=== PATIENT | female | born 1935 | race Caucasian/White ===

== ENCOUNTER 2017-02-21 18:42 | Emergency (ER) | payer MEDICARE, BC ==
[2017-02-21 19:12] VITALS: BP 159/72
--- NOTE | 2017-02-21 19:53 | UC ---
Complaint Female HPI - HPI Summary HPI Summary: 82 yo F with frequency and dysuria x 2 days. No fever, no flank pain. No abd pain, no N,V. - History Of Current Complaint Chief Complaint: UCGU Stated Complaint: URINARY Time Seen by Provider: 02/21/17 19:30 Hx Obtained From: Patient Hx Last Menstrual Period: n/a Onset/Duration: Gradual Onset, Lasting Days, Still Present Timing: Constant Severity Initially: Moderate Severity Currently: Moderate Pain Intensity: 2 Pain Scale Used: 0-10 Numeric Character: Not Applicable Aggravating Factor(s): Nothing Alleviating Factor(s): Nothing Associated Signs And Symptoms: Negative: Fever, Back Pain, Vaginal Bleeding/ Discharge, Vaginal Discharge - Allergies/Home Medications Allergies/Adverse Reactions: Allergies Allergy/AdvReac Type Severity Reaction Status Date / Time Penicillins Allergy Unknown Unknown Verified 02/21/17 19:13 Reaction Details Codeine Allergy shaking, Verified 02/21/17 19:13 stomach cramps dizzy hydro apap Allergy Intermediate nausea, Uncoded 02/21/17 19:13 rapid breathing headache, dizzy Versed/ Fentanyl Allergy Shakes Uncoded 02/21/17 19:13 most antibiotics AdvReac Intermediate GI Upset Uncoded 02/21/17 19:13 PMH/Surg Hx/FS Hx/Imm Hx Cardiovascular History Of: Reports: Cardiac Disorders - 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 BLADDER SX--2013 - Family History Known Family History: Positive: Cardiac Disease - Social History Alcohol Use: None Substance Use Type: None Smoking Status (MU): Never Smoked Tobacco Type: Cigarettes Have You Smoked in the Last Year: No Review of Systems Constitutional: Negative Skin: Negative Eyes: Negative ENT: Negative Respiratory: Negative Cardiovascular: Negative Gastrointestinal: Negative Genitourinary: Dysuria, Frequency, Urgency Motor: Negative Neurovascular: Negative Musculoskeletal: Negative Neurological: Negative Psychological: Negative All Other Systems Reviewed And Are Negative: Yes Physical Exam Triage Information Reviewed: Yes Appearance: Well-Appearing, Well-Nourished, Pain Distress Vital Signs: Initial Vital Signs Temp 98.4 F 02/21/17 19:08 Pulse 81 02/21/17 19:08 Resp 18 02/21/17 19:08 BP 159/72 02/21/17 19:08 Pulse Ox 100 02/21/17 19:08 elevated BP noted Vital Signs Reviewed: Yes Eyes: Positive: Conjunctiva Clear ENT: Positive: Hearing grossly normal. Negative: Muffled/hoarse voice Neck: Positive: Supple Respiratory: Positive: No respiratory distress Cardiovascular: Positive: RRR, Pulses Normal, Brisk Capillary Refill Abdomen Description: Positive: Nontender, Soft. Negative: CVA Tenderness (R), CVA Tenderness (L), Distended, Guarding, Hepatomegaly, McBurney's Point Tenderness, Peritoneal Signs, Pulsatile Mass, Splenomegaly Bowel Sounds: Positive: Present Musculoskeletal: Positive: Strength Intact, ROM Intact Neurological: Positive: Alert, Muscle Tone Normal Psychological Exam: Normal Skin Exam: Normal Complaint Female Dx - Course Course Of Treatment: Pt is unable to provide enough urine for urinalysis and culture, so have prioritized the culture results and will treat empirically for UTI. Pt's allergies are noted, so will use Bactrim. - Differential Dx/Diagnosis Differential Diagnosis/HQI/PQRI: Appendicitis, Ureteral Stone, Urinary Tract Infection Provider Diagnoses: UTI Discharge - Discharge Plan Condition: Stable Disposition: HOME Prescriptions: Phenazopyridine TAB* [Pyridium 100 mg TAB*] 100 mg PO TID #20 tab Sulfamethox/Trimethoprim DS* [Bactrim DS 800/160 TAB*] 1 tab PO BID #14 tab Patient Education Materials: Urinary Tract Infection in Women (ED) Referrals: IVAN Junior [Primary Care Provider] - 7 Days Additional Instructions: Return to urgent care if any new or worsening symptoms.
[2017-02-21] MEDS ORDERED: Sulfamethox/Trimethoprim DS 800/160* TAB PO ONE (19:54)
[2017-02-21] MEDS ORDERED: Phenazopyridine TAB* 100 MG PO ONE (19:59)
== END 2017-02-21 20:11 | disposition home or self-care (01) ==
LOC: UCCORT 18:42
DX: N39.0 Urinary tract infection, site not specified (principal); B96.89 Other specified bacterial agents as the cause of diseases classified elsewhere
CPT/HCPCS: 87086; 99212; A9270-GY; G0463

== ENCOUNTER 2018-04-06 16:48 | Emergency (ER) | payer MEDICARE, BC ==
[2018-04-06 17:29] VITALS: BP 146/72
--- NOTE | 2018-04-06 17:33 | UC ---
Skin Complaint HPI - HPI Summary HPI Summary: Patient found a tick on her right inner thigh yesterday. She states she removed it and came off very easily. She states that she is then cleaned the site. She denies any fever, joint pains, fatigue and rash. She notes the bite site is a little bit pink. She states that the tick was there for possibly 12 hours or less because she found in the evening and it was not there in the morning. 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 Hx Last Menstrual Period: n/a Aggravating Factor(s): Nothing Alleviating Factor(s): Nothing - Allergy/Home Medications Allergies/Adverse Reactions: Allergies Allergy/AdvReac Type Severity Reaction Status Date / Time codeine Allergy See Comment Verified 04/06/18 17:30 fentanyl Allergy Shakes Verified 04/06/18 17:30 hydrocodone Allergy See Comment Verified 04/06/18 17:30 midazolam [From Versed] Allergy Shakes Verified 04/06/18 17:30 Penicillins Allergy Unknown Verified 04/06/18 17:30 Reaction Details Review of Systems Constitutional: Negative Skin: Other - bite R inner thigh Eyes: Negative ENT: Negative Respiratory: Negative Cardiovascular: Negative Gastrointestinal: Negative Genitourinary: Negative Motor: Negative Neurovascular: Negative Musculoskeletal: Negative Neurological: Negative Psychological: Negative Is Patient Immunocompromised?: No All Other Systems Reviewed And Are Negative: Yes PMH/Surg Hx/FS Hx/Imm Hx GI/ History: Gastroesophageal Reflux - Surgical History Surgical History: Yes Surgery Procedure, Year, and Place: benign cyst removed right breast- [facility], breast lump removed [id number]. BLADDER SX--2014 - Family History Known Family History: Positive: None, Cardiac Disease - Social History Occupation: Retired Lives: With Family Alcohol Use: None Substance Use Type: None Smoking Status (MU): Never Smoked Tobacco Type: Cigarettes Have You Smoked in the Last Year: No - Immunization History Vaccination Up to Date: Yes Physical Exam Triage Information Reviewed: Yes Appearance: Well-Appearing Vital Signs Reviewed: Yes Eyes: Positive: Conjunctiva Clear ENT: Positive: Normal ENT inspection Neck: Positive: Supple, Nontender, No Lymphadenopathy Respiratory: Positive: Lungs clear, Normal breath sounds Cardiovascular: Positive: RRR, No Murmur Abdomen Description: Positive: Nontender, No Organomegaly, Soft Bowel Sounds: Positive: Present Musculoskeletal: Positive: ROM Intact Neurological: Positive: Alert Psychological: Positive: Age Appropriate Behavior Skin Exam: Normal, Other - pink spot R inner thigh where tick removed. No bullseye. Course/Dx - Course Course Of Treatment: bite < 36 hours and not engorged thus not tx indicated. - Diagnoses Provider Diagnoses: Tick bite R inner thigh Discharge - Sign-Out/Discharge Documenting (check all that apply): Patient Departure - Discharge Plan Condition: Stable Disposition: HOME Patient Education Materials: Tick Bite (ED) Referrals: Melanie BOO,Wale [Medical Doctor] - If Needed - Billing Disposition and Condition Condition: STABLE Disposition: Home
== END 2018-04-06 17:46 | disposition home or self-care (01) ==
LOC: UCCORT 16:48
DX: S70.361A Insect bite (nonvenomous), right thigh, initial encounter (principal); W57.XXXA Bitten or stung by nonvenomous insect and other nonvenomous arthropods, initial encounter; Y93.9 Activity, unspecified; Y92.9 Unspecified place or not applicable; K21.9 Gastro-esophageal reflux disease without esophagitis; Z88.5 Allergy status to narcotic agent; Z88.0 Allergy status to penicillin; Z88.8 Allergy status to other drugs, medicaments and biological substances
CPT/HCPCS: 99211; G0463

== ENCOUNTER 2018-09-25 12:09 | Emergency (ER) | payer MEDICARE, BC ==
--- OUTSIDE RECORDS SUMMARY | 2018-09-25 14:08 | XMS REPORT | Continuity of Care Document ---
:1935 External Reference #:[id number] Author Name Wale Navarro M.D. Address [address] [place] [address] Care Team Providers Name Role Phone Wale Navarro MD Care Team Information Accountant Property Unavailable Wale Navarro MD Primary Care Physician Unavailable Payers Type Date Identification Numbers Payment Provider Subscriber Effective: 2001 Policy Number: [id number] Medicare Lesly A Bueno PayID: [id number] [address] [place] [address] Effective: 2001 Policy Number: [id number] [facility] Lesly Bueno Group Number: [id number] [address] [address] [facility] [place] [address] PayID: [id number] Advance Directives Description No Information Available Problems Date Description Provider Status Onset: 10/01/2011 Gallstone Jose R Waters Active M.D. Onset: 04/08/2017 Taking medication Wale Navarro M.D. Active Onset: 04/08/2017 Hyperlipidemia screening Wale Navarro M.D. Active Onset: 04/08/2017 Gastroesophageal reflux disease Wale Navarro M.D. Active Onset: 04/08/2017 Encounter for screening for Wale Navarro M.D. Active nutritional disorder Onset: 04/08/2017 Depressive disorder Wale Navarro M.D. Active Onset: 04/23/2017 Vitamin D deficiency Wale Navarro M.D. Active Onset: 04/23/2017 Elevated blood-pressure reading Wale Navarro M.D. Active without diagnosis of hypertension Onset: 04/23/2017 Thrombocytopenic disorder Wale Navarro M.D. Active Onset: 04/23/2017 Localized, primary osteoarthritis Wale Navarro M.D. Active Onset: 07/24/2017 Otitis media Wale Navarro M.D. Active Onset: 07/24/2017 Disorder characterized by Wale Navarro M.D. Active eosinophilia Onset: 07/24/2017 Neutropenia Wale Navarro M.D. Active Onset: 08/19/2017 Impacted cerumen Wale Navarro M.D. Active Onset: 08/19/2017 Otalgia Wale Navarro M.D. Active Onset: 11/19/2017 Tear film insufficiency Bo Mata MD Active Onset: 11/19/2017 Combined form of senile cataract Bo Mata MD Active Onset: 11/19/2017 Presence of intraocular lens Bo Mata MD Active Onset: 11/20/2017 Contusion of lower leg Wale Navarro M.D. Active Onset: 04/19/2018 Coordination problem Wale Navarro M.D. Active Onset: 04/19/2018 Diplopia Wale Navarro M.D. Active Onset: 04/19/2018 Headache Wale Navarro M.D. Active Onset: 05/14/2018 Mild cognitive disorder Wale Navarro M.D. Active Onset: 06/24/2018 Abnormal gait Wale Navarro M.D. Active Onset: 06/24/2018 Immunization Wale Navarro M.D. Active Onset: 07/02/2018 Carotid artery occlusion Wale Navarro M.D. Active Onset: 07/29/2018 Contact dermatitis Wale Navarro M.D. Active Onset: 09/10/2018 Chest pain Wale Navarro M.D. Active Family History Date Family Member(s) Problem(s) Comments : (age 84 Father due to AL age 84 Years) Father due to Lung Cancer () : (age 86 Mother due to Natural age 86 Years) Causes Mother due to Diabetes () First Son Seasonal Allergies First Daughter Tachycardia First Brother Hypertension First Brother due to Stomach () - age 72 Cancer First Brother Stomach Cancer Second Brother Hypertension Second Brother 71 Second Brother Alive Social History Type Date Description Comments Sex Unknown Marital Status Lives With Diet Patient follows no dietary restrictions Occupation Retired Tobacco Use Start: Unknown Never Smoked Cigarettes ETOH Use Denies alcohol use Tobacco Use Start: Unknown Patient denies history of smoking Recreational Drug Use Never Used Drugs Smoking Status Reviewed: 09/10/18 Patient denies history of smoking Exercise Type/Frequency Exercises regularly WALKING 1 MILE DAILY Allergies, Adverse Reactions, Alerts Date Description Reaction Status Severity Comments 09/30/2011 Penicillin Active 09/30/2011 Detrol Active 09/30/2011 Vesicare Active 09/30/2011 Hydrocodone Active Apap5- 50 Mg 09/30/2011 Codeine rapid breathing, Active Narcotia extreme nausea, shaky, headach and dizzines 09/30/2011 Cipro stomach wont tolerate Active 09/30/2011 Nitrofur stomach wont tolerate Active 06/28/2018 Penicillins Unknown Active 09/30/2011 Ibuprofen Active stomach will not tolerate 06/28/2018 Nitrofurantoin Upset Stomach Active 04/08/2017 Effexor STOMACH ISSUES Active 06/28/2018 Ciprofloxacin Upset Stomach Active 06/28/2018 Venlafaxine Upset Stomach Active 06/28/2018 Tolterodine Upset Stomach Active 06/28/2018 Solifenacin Upset Stomach Active Medications Medication Date Status Form Strength Qnty SIG Indications Ordering Provider Exelon 06/24 Active Patches 4.6mg/24H 30uni apply 1 G31.84 24HR R ts patch td Rema Echevarria daily Gaviscon Extra 11/16 Active Suspension 508-475mg One dose Melanie, Strength /2017 /10ML nightly. Rema Echevarria Formula (OTC) Zoloft 09/29 Active Tablets 50mg 90tab take 1 Melanie s tablet Rema Echevarria every morning Vitamin D High 04/23 Active Capsules 1000Unit 90cap 2 by Melanie Potency s mouth Rema Echevarria every day Pantoprazole 04/[address] 40mg 90tab take one Melanie s tablet by Rema Echevarria mouth once daily Fiber Laxative Active Capsules 625mg 1 po bid Unknown Aspirin Active Tablets DR 81mg 1 po qd Refresh Tears Active Solution 0.5% as needed Estrace Active Cream 0.1mg/GM apply peas size amount on finger and place at vaginal opening Aricept 05/17 Hx Tablets 5mg 30tab Take 1 Melanie s tablet Rema Echevarria - daily 06/24 Prednisolone 07/28 Hx Suspension 1% 5ml 1 drop H25.813 Adolfo, Acetate left eye MD Bo - four 09/01 daily for four weeks; please begin after surgery Gentamicin 07/28 Hx Solution 0.3% 5ml 1 drop H25.813 Adolfo Sulfate left eye MD Bo - 4 times 08/19 daily for 10 days; please begin 3 days prior to surgery Diclofenac 07/28 Hx Solution 0.1% 1unit 1 drop H25.813 Adolfo Sodium s left eye MD Bo - four 08/19 daily for 2 weeks beginning three days before operation Azithromycin 07/24 Hx Tablets 250mg 6tabs take 2 Melanie tablets Rema Echevarria - by mouth 08/13 on day and take 1 tablet by mouth daily on days 2- Pantoprazole 04/08 Hx Solution 40mg 1 by Christiano Navarro Rec mouth Rema Echevarria - every day 04/08 Cyclobenzaprine 11/14 Hx Tablets 10mg 1 po tid MAIA Waters prn Jose R - spasms at H., M.D. 04/08 bedtime Hyoscyamine Hx Tablets 0.125mg 1/2 tab Unknown Sub daily - 04/08 Nexium Hx Capsules 40mg 60cap [address] hinds - 04/08 Niacin SR Hx Capsules 500mg 1 po Unknown ER daily - 04/08 Vitamin D-3 Hx Tablets 400Iu po qd - 04/08 Gaviscon Extra Hx Chewtabs 160-105mg 1 tbls at Unknown Strength Relief /0000 bedtime Formula - 07/16 Amitriptyline Hx Tablets 10mg 1 po qd Unknown HCL / - 04/08 Ketorolac Hx Solution 1 drop 3 Unknown Tromethamine /0000 x a day - as needed 04/08 Flovent HFA Hx Aerosol 110mcg/Ac 2 puffs Unknown / t twice a - day 04/08 Premarin Hx Cream 0.625mg/G insert Unknown /0000 M one-half - applicato 08/13 vaginally once to twice a week as needed Tylenol Extra Hx Tablets 500mg 1-2 tabs Unknown Strength /0000 by mouth - every 4 08/13 hours needed Warren 3 Hx Capsules 1280mgS 1 by Unknown /0000 mouth - every day 05/14 Sodium Fluoride Hx Solution 1.1(0.5F) SF 5000 Unknown /0000 mg/ML ppm brush - 2x daily 08/13 Flagyl Hx Tablets 500mg one by Unknown /0000 mouth - twice a 05/14 day x days Nystatin-Triamci Hx Cream [id number]. apply to Unknown nolone /0000 1Unit/GM- affected - % area 05/14 twice a day Immunizations CPT Code Status Date Vaccine Lot # [id number] Given 06/24/2018 Influenza Virus Vaccine, Quadrivalent, 36 Mos+, [id number] Given 07/24/2017 Influenza Virus Vaccine [place] Iiv[place] [id number] Given 07/10/2003 flu vaccination [id number] Given 10/17/2002 Tetnus Injection 54092 Given 07/12/2002 flu vaccination Vital Signs Date Vital Result Comment 09/10/2018 1:57pm BP Systolic Sitting Right Arm 120 mmHg BP Diastolic Sitting Right Arm 62 mmHg Body Temperature 98.4 F Heart Rate 70 /min reg Respiratory Rate 18 /min Height 62 inches 5'2" Weight 135.00 lb BMI (Body Mass Index) 24.7 kg/m2 BSA (Body Surface Area) 1.62 m2 [place] body weight in kilograms 50 kg O2 % BldC Oximetry 98 % ra 07/29/2018 10:25am BP Systolic Sitting Left Arm 140 mmHg BP Diastolic Sitting Left Arm 70 mmHg Body Temperature 98.1 F Heart Rate 70 /min Reg Respiratory Rate 18 /min Height 62 inches 5'2" Weight 134.00 lb BMI (Body Mass Index) 24.5 kg/m2 BSA (Body Surface Area) 1.61 m2 [place] body weight in kilograms 50 kg O2 % BldC Oximetry 97 % Ra 07/27/2018 12:08pm BP Systolic Sitting Right Arm 142 mmHg BP Diastolic Sitting Right Arm 66 mmHg Body Temperature 97.4 F Heart Rate 67 /min ra Respiratory Rate 18 /min Height 62 inches 5'2" Weight 133.00 lb BMI (Body Mass Index) 24.3 kg/m2 BSA (Body Surface Area) 1.61 m2 [place] body weight in kilograms 50 kg O2 % BldC Oximetry 98 % ra 07/02/2018 3:36pm BP Systolic 128 mmHg BP Diastolic 77 mmHg Body Temperature 98.2 F Heart Rate 74 /min Respiratory Rate 20 /min Weight 132.00 lb O2 % BldC Oximetry 96 % Ra Pain Level 0 06/24/2018 1:11pm BP Systolic 157 mmHg BP Diastolic 76 mmHg Body Temperature 97.8 F Heart Rate 69 /min Respiratory Rate 20 /min Weight 135.00 lb O2 % BldC Oximetry 98 % Ra Pain Level 0 05/14/2018 1:17pm BP Systolic 142 mmHg BP Diastolic 72 mmHg Body Temperature 98.1 F Heart Rate 73 /min Respiratory Rate 18 /min Height 64 inches 5'4" Weight 132.00 lb BMI (Body Mass Index) 22.7 kg/m2 BSA (Body Surface Area) 1.64 m2 [place] body weight in kilograms 54 kg O2 % BldC Oximetry 95 % 04/19/2018 12:56pm BP Systolic 132 mmHg BP Diastolic 72 mmHg Body Temperature 98.5 F Heart Rate 73 /min Respiratory Rate 18 /min Height 64 inches 5'4" Weight 134.00 lb BMI (Body Mass Index) 23.0 kg/m2 BSA (Body Surface Area) 1.65 m2 [place] body weight in kilograms 54 kg O2 % BldC Oximetry 98 % 11/20/2017 2:27pm BP Systolic 124 mmHg BP Diastolic 68 mmHg Heart Rate 79 /min Respiratory Rate 14 /min Height 64 inches 5'4" Weight 133.12 lb BMI (Body Mass Index) 22.8 kg/m2 BSA (Body Surface Area) 1.65 m2 [place] body weight in kilograms 54 kg O2 % BldC Oximetry 95 % 08/19/2017 3:36pm BP Systolic 157 mmHg BP Diastolic 81 mmHg Heart Rate 80 /min Respiratory Rate 12 /min Height 64 inches 5'4" Weight 133.00 lb BMI (Body Mass Index) 22.8 kg/m2 BSA (Body Surface Area) 1.64 m2 [place] body weight in kilograms 54 kg O2 % BldC Oximetry 96 % 07/24/2017 3:31pm BP Systolic 169 mmHg BP Diastolic 65 mmHg Heart Rate 76 /min Respiratory Rate 14 /min Height 64 inches 5'4" Weight 134.25 lb BMI (Body Mass Index) 23.0 kg/m2 BSA (Body Surface Area) 1.65 m2 [place] body weight in kilograms 54 kg O2 % BldC Oximetry 97 % 04/23/2017 11:08am BP Systolic 154 mmHg BP Diastolic 72 mmHg Heart Rate 71 /min Respiratory Rate 12 /min Height 64 inches 5'4" Weight 139.00 lb BMI (Body Mass Index) 23.9 kg/m2 BSA (Body Surface Area) 1.68 m2 [place] body weight in kilograms 54 kg O2 % BldC Oximetry 100 % 04/08/2017 9:50am BP Systolic 128 mmHg BP Diastolic 69 mmHg Heart Rate 74 /min Respiratory Rate 16 /min Height 64 inches 5'4" Weight 138.00 lb BMI (Body Mass Index) 23.7 kg/m2 BSA (Body Surface Area) 1.67 m2 [place] body weight in kilograms 54 kg O2 % BldC Oximetry 99 % 10/01/2011 10:49am BP Systolic Sitting Right Arm 143 mmHg BP Diastolic Sitting Right Arm 83 mmHg Heart Rate 82 /min Respiratory Rate 20 /min Height 64 inches 5'4" Weight 148.00 lb BMI (Body Mass Index) 25.4 kg/m2 Results Test Date Facility Test Result H/L Range Note RDW RBC Auto-Rto N2N/CCD Import RDW RBC Auto-Rto 14.2 11.7-14.4 018 RDW RBC Auto N2N/CCD Import RDW RBC Auto 46.1 3-47 018 Potassium N2N/CCD Import Potassium 3.9 3.5-5.1 SerPl-sCnc 018 SerPl-sCnc Neutrophils/leuk 10/01/2 N2N/CCD Import Neutrophils/leuk 43.2 40.4-72.8 NFr Bld Auto 018 NFr Bld Auto Neutrophils # Bld N2N/CCD Import Neutrophils # Bld 2.29 1.8-7.0 Auto 018 Auto Monocytes/leuk NFr N2N/CCD Import Monocytes/leuk NFr 13.0 4.3- 13.2 Bld Auto 018 Bld Auto Lymphocytes/leuk N2N/CCD Import Lymphocytes/leuk 37.2 20.0-42.0 NFr Bld Auto 018 NFr Bld Auto Globulin Ser N2N/CCD Import Globulin Ser 4.5 High 1.9-4.3 Calc-mCnc 018 Calc-mCnc Eosinophil/leuk NFr N2N/CCD Import Eosinophil/leuk 5.7 0.0-6.6 Bld Auto 018 NFr Bld Auto Chloride SerPl-sCnc N2N/CCD Import Chloride 105 98-107 018 SerPl-sCnc Blood monocytes N2N/CCD Import Blood monocytes 0.69 0.3-0.9 automated count 018 automated count (number/volume) (number/volume) Blood leukocytes N2N/CCD Import Blood leukocytes 5.3 3.1-10.7 automated count 018 automated count (number/volume) (number/volume) Serum carbon N2N/CCD Import Serum carbon 26 21-32 dioxide measurement 018 dioxide measurement Serum or plasma N2N/CCD Import Serum or plasma 3.7 3.4-5.0 albumin measurement 018 albumin (mass/volume) measurement (mass/volume) Serum or plasma N2N/CCD Import Serum or plasma 46 45-117 alkaline 018 alkaline phosphatase phosphatase measurement ( measurement (enzymatic activity/volume) Serum or plasma N2N/CCD Import Serum or plasma 15 15-37 aspartate 018 aspartate aminotransferase aminotransferase measure measurement (enzymatic activity/volume) Serum or plasma N2N/CCD Import Serum or plasma 9.2 8.5-10.1 calcium measurement 018 calcium (mass/volume) measurement (mass/volume) Serum or plasma N2N/CCD Import Serum or plasma 0.7 0.6-1.3 creatinine 018 creatinine measurement measurement (mass/volum (mass/volume) Serum or plasma N2N/CCD Import Serum or plasma 90 74-106 glucose measurement 018 glucose (mass/volume) measurement (mass/volume) Serum or plasma N2N/CCD Import Serum or plasma 8.2 6.4-8.2 protein measurement 018 protein (mass/volume) measurement (mass/volume) Serum or plasma N2N/CCD Import Serum or plasma 1.1 High 0.2-1.0 total bilirubin 018 total bilirubin measurement (mass/ measurement (mass/volume) Serum or plasma N2N/CCD Import Serum or plasma 13 7-18 urea nitrogen 018 urea nitrogen measurement measurement (mass/vo (mass/volume) Serum or plasma N2N/CCD Import Serum or plasma 18.5 urea 018 urea nitrogen/creatinine nitrogen/creatinin mass rati e mass ratio Serum sodium N2N/CCD Import Serum sodium 141 136-145 measurement 018 measurement Ketones Ur N2N/CCD Import Ketones Ur Negative Negative Strip.auto-mCnc 018 Strip.auto-mCnc Epithelial cells N2N/CCD Import Epithelial cells Moderate None Seen detection in urine 018 detection in urine sediment by li sediment by light microscopy Color Ur N2N/CCD Import Color Ur Yellow Yellow 018 Bacteria detection N2N/CCD Import Bacteria detection Very Few None Seen in urine sediment 018 in urine sediment by light micr by light microscopy Amorphous sediment N2N/CCD Import Amorphous sediment Very Few Negative detection in urine 018 detection in urine sediment by sediment by light microscopy Leukocyte esterase N2N/CCD Import Leukocyte esterase Small High Negative Ur Ql Strip.auto 018 Ur Ql Strip.auto Nitrite Ur Ql N2N/CCD Import Nitrite Ur Ql Negative Negative Strip.auto 018 Strip.auto Prot Ur N2N/CCD Import Prot Ur Negative Negative Strip.auto-mCnc 018 Strip.auto-mCnc Urine appearance N2N/CCD Import Urine appearance Clear Clear determination 018 determination Urine glucose N2N/CCD Import Urine glucose Negative Negative measurement by 018 measurement by automated test automated test strip strip (mass/volume) Urine hemoglobin N2N/CCD Import Urine hemoglobin Trace Negative detection by 018 detection by automated test automated test strip strip Urine total N2N/CCD Import Urine total Negative Negative bilirubin detection 018 bilirubin by automated test detection by automated test strip Urobilinogen Ur N2N/CCD Import Urobilinogen Ur 0.2 0.2-1.0 Strip-aCnc 018 Strip-aCnc pH Ur Strip.auto N2N/CCD Import pH Ur Strip.auto 7.0 6.5-7.5 018 Blood hemoglobin N2N/CCD Import Blood hemoglobin 12.9 11.6-15.8 measurement 018 measurement (mass/volume) (mass/volume) Blood erythrocytes N2N/CCD Import Blood erythrocytes 4.35 3.90- 5.40 automated count 018 automated count (number/volume) (number/volume) Basophils/leuk NFr N2N/CCD Import Basophils/leuk NFr 0.9 0.0- 1.1 Bld Auto 018 Bld Auto Automated N2N/CCD Import Automated 91.5 80.9-99.0 erythrocyte mean 018 erythrocyte mean corpuscular volume corpuscular volume Automated N2N/CCD Import Automated 32.4 30.8-34.3 erythrocyte mean 018 erythrocyte mean corpuscular corpuscular hemoglobin hemoglobin concentration measurement (mass/volume) Automated N2N/CCD Import Automated 29.7 25.9-32.7 erythrocyte mean 018 erythrocyte mean corpuscular corpuscular hemoglobin hemoglobin (mass per erythrocyte) Automated blood N2N/CCD Import Automated blood 11.7 8.9-12.4 platelet mean 018 platelet mean volume measurement volume measurement Automated blood N2N/CCD Import Automated blood 166 155-360 platelet count 018 platelet count Automated blood N2N/CCD Import Automated blood 1.97 1.0-4.0 lymphocyte count 018 lymphocyte count (number/volume) (number/volume) Automated blood N2N/CCD Import Automated blood 39.8 36.0-46.1 hematocrit (volume 018 hematocrit (volume fraction) fraction) Automated blood N2N/CCD Import Automated blood 0.30 0.0-0.5 eosinophil count 018 eosinophil count Automated blood N2N/CCD Import Automated blood 0.05 0.0-0.1 basophil count 018 basophil count (count/volume) (count/volume) Anion Gap N2N/CCD Import Anion Gap 10 8-16 SerPl-sCnc 018 SerPl-sCnc Albumin/Glob SerPl N2N/CCD Import Albumin/Glob SerPl 0.8 018 Alt SerPl-cCnc N2N/CCD Import Alt SerPl-cCnc 21 12-78 018 TSH SerPl-aCnc N2N/CCD Import TSH SerPl-aCnc 1.47 0.30-4.20 018 Laboratory test [facility] Vitamin 39.5 ng/mL 30.0-100.0 1, 2 finding 018 [address],25-Hydroxy [place], [place] [id number] [phone] Serum or plasma N2N/CCD Import Serum or plasma 39.5 30.0-100.0 25-hydroxyvitamin D 018 25-hydroxyvitamin measurement (m D measurement (mass/volume) Serum or plasma N2N/CCD Import Serum or plasma 2.4 1.8-2.4 magnesium 018 magnesium measurement measurement (mass/volume (mass/volume) Vitamin B12 [facility] Vitamin B12 1381 pg/mL High 193-986 018 [address] [place], [place] [id number] [phone] Reflex add FT3? Y Reflex add FT4? Y Magnesium 04/19/2018 [facility] Magnesium 2.4 mg/dL N 1.8-2.4 [address] [place] [address] [phone] Reflex add FT3? Y Reflex add FT4? Y Comprehensive Metabolic 04/19/2018 [facility] Glucose 69 mg/dL Low 74-106 Panel [address] [place] [address] [phone] BUN 11 mg/dL N 7-18 Creatinine 0.8 mg/dL N 0.6-1.3 Glom Filtration Rate, Estimate >60 mL/min >60 If >60 mL/min >60 3 BUN/Creat 13.7 ratio Sodium 143 mmol/L N 136-145 Potassium 3.9 mmol/L N 3.5-5.1 Chloride 105 mmol/L N 98-107 Carbon Dioxide 30 mmol/L N 21-32 Anion Gap 8 mEq/L N 8-16 Calcium 8.7 mg/dL N 8.5-10.1 Total Protein 7.6 g/dL N 6.4-8.2 Albumin 3.7 g/dL N 3.4-5.0 Globulin 3.9 g/dL N 1.9-4.3 Alb/Glob 0.9 ratio Bilirubin,Total 0.6 mg/dL N 0.2-1.0 Sgot/Ast 20 U/L N 15-37 SGPT/Alt 17 U/L N 12-78 Alkaline Phosphatase 46 U/L N 45-117 Reflex add FT3? Y Reflex add FT4? Y CBS W/Automated Diff 04/19/2018 [facility] White Blood 4.7 K/uL N 3.1-10.[address] Count [place], [place] [id number] [phone] Red Blood Count 4.32 M/uL N 3.90-5.40 Hemoglobin 12.6 gm/dL N 11.6-15.8 Hematocrit 38.7 % N 36.0-46.1 Mean Cell Volume 89.6 fl N 80.9-99.0 Mean Corpuscular HGB 29.2 pg N 25.9-32.7 Mean Corpuscular HGB Conc 32.6 g/dL N 30.8-34.3 Platelet Count 164 K/uL N 155-360 Red Cell Distri Width SD 45.1 fl N 3-47 Red Cell Distri Width %CV 14.2 % N 11.7-14.4 Mean Platelet Volume 11.9 fL N 8.9-12.4 Neut% 47.3 % N 40.4-72.8 Lymph % 36.2 % N 20.0-42.0 [place] % 13.6 % High 4.3-13.2 Eo% 2.3 % N 0.0-6.6 Bas% 0.6 % N 0.0-1.1 Neut# 2.23 K/uL N 1.8-7.0 Lymph # 1.71 K/uL N 1.0-4.0 [place] # 0.64 K/uL N 0.3-0.9 Eos # 0.11 K/uL N 0.0-0.5 Baso # 0.03 K/uL N 0.0-0.1 TSH Reflex FT4 04/19/2018 [facility] Thyroid Stim 1.47 uIU/mL N 0.30-4.20 And/Or FT3 [address] [facility] Hormone [place], [place] [id number] [phone] Reflex add FT3? Y Reflex add FT4? Y Serum or plasma 04/19/2018 N2N/CCD Import Serum or plasma 1381 High 193- 576 vitamin B12 vitamin B12 measurement measurement (mass/volu (mass/volume) Laboratory test 11/12/2017 [facility] Magnesium 2.4 mg/dL N 1.8-2.4 4 finding [address] [place], [place] [id number] [phone] Vitamin B12 938 pg/mL N 193-986 Comprehensive Metabolic 11/12/2017 [facility] Glucose 87 mg/dL N 74-106 Panel [address] [place], [place] [id number] [phone] BUN 18 mg/dL N 7-18 Creatinine 0.6 mg/dL N 0.6-1.3 Glom Filtration Rate, Estimate >60 mL/min >60 If >60 mL/min >60 5 BUN/Creat 30.0 ratio Sodium 140 mmol/L N 136-145 Potassium 4.1 mmol/L N 3.5-5.1 Chloride 103 mmol/L N 98-107 Carbon Dioxide 31 mmol/L N 21-32 Anion Gap 6 mEq/L Low 8-16 Calcium 9.0 mg/dL N 8.5-10.1 Total Protein 7.5 g/dL N 6.4-8.2 Albumin 3.6 g/dL N 3.4-5.0 Globulin 3.9 g/dL N 1.9-4.3 Alb/Glob 0.9 ratio Bilirubin,Total 0.6 mg/dL N 0.2-1.0 Sgot/Ast 22 U/L N 15-37 SGPT/Alt 22 U/L N 12-78 Alkaline Phosphatase 53 U/L N 45-117 CBS W/Automated Diff 11/12/2017 [facility] White Blood 4.9 K/uL N 3.1-10.[address] Count [place], [place] [id number] [phone] Red Blood Count 4.51 M/uL N 3.90-5.40 Hemoglobin 13.3 gm/dL N 11.6-15.8 Hematocrit 41.0 % N 36.0-46.1 Mean Cell Volume 90.9 fl N 80.9-99.0 Mean Corpuscular HGB 29.5 pg N 25.9-32.7 Mean Corpuscular HGB Conc 32.4 g/dL N 30.8-34.3 Platelet Count 153 K/uL Low 155-360 Red Cell Distri Width SD 46.7 fl N 3-47 Red Cell Distri Width %CV 14.3 % N 11.7-14.4 Mean Platelet Volume 12.1 fL N 8.9-12.4 Neut% 52.8 % N 40.4-72.8 Lymph % 29.1 % N 20.0-42.0 [place] % 14.2 % High 4.3-13.2 Eo% 3.1 % N 0.0-6.6 Bas% 0.8 % N 0.0-1.1 Neut# 2.56 K/uL N 1.8-7.0 Lymph # 1.41 K/uL N 1.0-4.0 [place] # 0.69 K/uL N 0.3-0.9 Eos # 0.15 K/uL N 0.0-0.5 Baso # 0.04 K/uL N 0.0-0.1 Laboratory 11/12/2017 [facility] Vitamin 38.3 30.0-100.0 6 test finding [address],25-Hydroxy ng/mL [place], [place] [id number] [phone] Laboratory 08/12/2017 [facility] Hold Slide for Slide on 7, 8 test finding [address] [place] [address] <SEE [phone] NOTE> CBS 08/12/2017 [facility] White Blood 5.3 K/uL N 3.1-10.7 W/Automated [address] [place] [address] [phone] Red Blood Count 4.29 M/uL N 3.90-5.40 Hemoglobin 12.4 gm/dL N 11.6-15.8 Hematocrit 38.8 % N 36.0-46.1 Mean Cell Volume 90.4 fl N 80.9-99.0 Mean Corpuscular HGB 28.9 pg N 25.9-32.7 Mean Corpuscular HGB Conc 32.0 g/dL N 30.8-34.3 Platelet Count 135 K/uL Low 150-400 Red Cell Distri Width SD 44.3 fl N 3-47 Red Cell Distri Width %CV 13.9 % N 11.7-14.4 Mean Platelet Volume 12.7 fL High 8.9-12.4 Neut% 41.4 % N 40.4-72.8 Lymph % 37.1 % N 20.0-42.0 [place] % 13.1 % N 4.3-13.2 Eo% 7.5 % High 0.0-6.6 Bas% 0.9 % N 0.0-1.1 Neut# 2.21 K/uL N 1.8-7.0 Lymph # 1.98 K/uL N 1.0-4.0 [place] # 0.70 K/uL N 0.3-0.9 Eos # 0.40 K/uL N 0.0-0.5 Baso # 0.05 K/uL N 0.0-0.1 Comprehensive Metabolic 07/17/2017 [facility] Glucose 90 mg/dL N 74-106 [address] [place], [place] [id number] [phone] BUN 13 mg/dL N 7-18 Creatinine 0.7 mg/dL N 0.6-1.3 Glom Filtration Rate, Estimate >60 mL/min >60 If >60 mL/min >60 10 BUN/Creat 18.5 ratio Sodium 139 mmol/L N 136-145 Potassium 4.0 mmol/L N 3.5-5.1 Chloride 103 mmol/L N 98-107 Carbon Dioxide 31 mmol/L N 21-32 Anion Gap 5 mEq/L Low 8-16 Calcium 8.7 mg/dL N 8.5-10.1 Total Protein 7.9 g/dL N 6.4-8.2 Albumin 3.7 g/dL N 3.4-5.0 Globulin 4.2 g/dL N 1.9-4.3 Alb/Glob 0.9 ratio Bilirubin,Total 0.7 mg/dL N 0.2-1.0 Sgot/Ast 18 U/L N 15-37 SGPT/Alt 18 U/L N 12-78 Alkaline Phosphatase 58 U/L N 45-117 CBS W/Automated Diff 07/17/2017 [facility] White Blood 5.0 K/uL N 3.1-10.[address] [place] [address] [phone] Red Blood Count 4.37 M/uL N 3.90-5.40 Hemoglobin 13.0 gm/dL N 11.6-15.8 Hematocrit 39.9 % N 36.0-46.1 Mean Cell Volume 91.3 fl N 80.9-99.0 Mean Corpuscular HGB 29.7 pg N 25.9-32.7 Mean Corpuscular HGB Conc 32.6 g/dL N 30.8-34.3 Platelet Count 153 K/uL N 150-400 Red Cell Distri Width SD 45.3 fl N 3-47 Red Cell Distri Width %CV 13.8 % N 11.7-14.4 Mean Platelet Volume 12.5 fL High 8.9-12.4 Neut% 27.2 % Low 40.4-72.8 Lymph % 33.3 % N 20.0-42.0 [place] % 15.7 % High 4.3-13.2 Eo% 22.8 % High 0.0-6.6 Bas% 1.0 % N 0.0-1.1 Neut# 1.35 K/uL Low 1.8-7.0 Lymph # 1.65 K/uL N 1.0-4.0 [place] # 0.78 K/uL N 0.3-0.9 Eos # 1.13 K/uL High 0.0-0.5 Baso # 0.05 K/uL N 0.0-0.1 Laboratory 07/17/2017 PSYCHIATRIC Magnesium 2.3 mg/dL N 1.8-2.4 test finding [address] [place] [address] [phone] Laboratory 07/17/2017 [facility] Vitamin 35.0 30.0-100.0 11 test finding [address] D,25-Hydroxy ng/mL [place], [place] [id number] [phone] Laboratory 04/09/2017 [facility] HDL Cholesterol 40 mg/dL >40 12, test finding [address] [place] [address] [phone] Triglycerides 121 mg/dL <150 14 Vitamin D,25-Hydroxy 24.1 ng/mL Low 30.0-100.0 15 TSH Reflex FT4 and/or FT3 2.18 uIU/mL N 0.30-4.20 Direct LDL 04/09/2017 [facility] LDL Chol. 93 mg/dL 0-99 16 Cholesterol [address] (Direct) [place], [place] [id number] [phone] Laboratory test 04/09/2017 [facility] Magnesium 2.2 mg/dL N 1.8-2.4 finding [address] [place], [place] [id number] [phone] Vitamin B12 857 pg/mL N 193-986 Comprehensive Metabolic 04/09/2017 [facility] Glucose 89 mg/dL N 74-106 Panel [address] [place] [address] [phone] BUN 24 mg/dL High 7-18 Creatinine 0.8 mg/dL N 0.6-1.3 Glom Filtration Rate, Estimate >60 mL/min >60 If >60 mL/min >60 17 BUN/Creat 30.0 ratio Sodium 141 mmol/L N 136-145 Potassium 4.2 mmol/L N 3.5-5.1 Chloride 105 mmol/L N 98-107 Carbon Dioxide 31 mmol/L N 21-32 Anion Gap 5 mEq/L Low 8-16 Calcium 8.6 mg/dL N 8.5-10.1 Total Protein 7.4 g/dL N 6.4-8.2 Albumin 3.5 g/dL N 3.4-5.0 Globulin 3.9 g/dL N 1.9-4.3 Alb/Glob 0.9 ratio Bilirubin,Total 0.6 mg/dL N 0.2-1.0 Sgot/Ast 20 U/L N 15-37 SGPT/Alt 19 U/L N 12-78 Alkaline Phosphatase 50 U/L N 45-117 CBS W/Automated Diff 04/09/2017 [facility] White Blood 4.0 K/uL N 3.1-10.[address] [place] [address] [phone] Red Blood Count 4.23 M/uL N 3.90-5.40 Hemoglobin 12.3 gm/dL N 11.6-15.8 Hematocrit 38.9 % N 36.0-46.1 Mean Cell Volume 92.0 fl N 80.9-99.0 Mean Corpuscular HGB 29.1 pg N 25.9-32.7 Mean Corpuscular HGB Conc 31.6 g/dL N 30.8-34.3 Platelet Count 147 K/uL Low 150-400 Red Cell Distri Width SD 46.8 fl N 3-47 Red Cell Distri Width %CV 14.4 % N 11.7-14.4 Mean Platelet Volume 12.7 fL High 8.9-12.4 Neut% 36.6 % Low 40.4-72.8 Lymph % 42.2 % High 20.0-42.0 [place] % 13.6 % High 4.3-13.2 Eo% 6.9 % High 0.0-6.6 Bas% 0.7 % N 0.0-1.1 Neut# 1.47 K/uL Low 1.8-7.0 Lymph # 1.70 K/uL N 1.0-4.0 [place] # 0.55 K/uL N 0.3-0.9 Eos # 0.28 K/uL N 0.0-0.5 Baso # 0.03 K/uL N 0.0-0.1 1 F32.89,Z79.899,E55.9 2 Vitamin D deficiency has been defined by the [place] [employer] and an Endocrine Society practice guideline as a level of serum 25-OH vitamin D less than 20 ng/mL (1,2). The Endocrine Society went on to further define vitamin D insufficiency as a level between 21 and 29 ng/mL (2). 1. IOM ([place] [employer]). 2010. Dietary reference intakes for calcium and D. [place]: The National Academies Press. 2. Osbaldo MALCOLM, [place] JOHN, Ishan EDUARDO, et al. Evaluation, treatment, and prevention of vitamin D deficiency: an Endocrine Society clinical practice guideline. JCEM. 2010; 96(7):1911-30. Performed at: RN - [facility] [address] [id number] Building Tech: Gemma Taylor MD, Phone: [phone] Note: Persistent reduction for 3 months or more in an eGFR <60 mL/min/1.73 m2 defines CKD. Patients with eGFR values >/=60 mL/min/1.73 m2 may also have CKD if evidence of persistent proteinuria is present. The original MDRD equation for estimated GFR is not valid for patients less than 18 years of age. Additional information may be found at www.kdoqi.org. 4 E55.9,K21.9,Z79.899 5 Note: Persistent reduction for 3 months or more in an eGFR <60 mL/min/1.73 m2 defines CKD. Patients with eGFR values >/=60 mL/min/1.73 m2 may also have CKD if evidence of persistent proteinuria is present. The original MDRD equation for estimated GFR is not valid for patients less than 18 years of age. Additional information may be found at www.kdoqi.org. 6 Vitamin D deficiency has been defined by the [place] [employer] and an Endocrine Society practice guideline as a level of serum 25-OH vitamin D less than 20 ng/mL (1,2). The Endocrine Society went on to further define vitamin D insufficiency as a level between 21 and 29 ng/mL (2). 1. IOM ([place] [employer]). 2010. Dietary reference intakes for calcium and D. [place]: The National Academies Press. 2. Osbaldo MALCOLM, La JOHN, Ishan EDUARDO, et al. Evaluation, treatment, and prevention of vitamin D deficiency: an Endocrine Society clinical practice guideline. JCEM. 2010; 96(7):1911-30. Performed at: RN - [facility] [address] [id number] Building Tech: Gemma Taylor MD, Phone: [phone] D72.1 8 Slide on file in lab Instrument flagged sample for slide review. Less than 10% Bands seen, no other immature WBC's seen. RBC morphology essentially normal. Platelet estimate=NORMAL 9 E55.9 Z79.899 10 Note: Persistent reduction for 3 months or more in an eGFR <60 mL/min/1.73 m2 defines CKD. Patients with eGFR values >/=60 mL/min/1.73 m2 may also have CKD if evidence of persistent proteinuria is present. The original MDRD equation for estimated GFR is not valid for patients less than 18 years of age. Additional information may be found at www.kdoqi.org. 11 Vitamin D deficiency has been defined by the [place] [employer] and an Endocrine Society practice guideline as a level of serum 25-OH vitamin D less than 20 ng/mL (1,2). The Endocrine Society went on to further define vitamin D insufficiency as a level between 21 and 29 ng/mL (2). 1. IOM ([place] [employer]). 2010. Dietary reference intakes for calcium and D. [place]: The National Academies Press. 2. Osbaldo MF, La JOHN, Ishan EDUARDO, et al. Evaluation, treatment, and prevention of vitamin D deficiency: an Endocrine Society clinical practice guideline. JCEM. 2010; 96(7):1911-30. Performed at: RN - [facility] [address] [id number] Building Tech: Gemma Taylor MD, Phone: [phone] Z79.899 Z13.220 Z13.21 Z79.899 Z13.220 Z13.21 F32.89 Z79.899 Z13.220 Z13.21 F32.89 13 Reference Guidelines*: Low HDL: ..... < 40 mg/dL Normal: ..... 40-60 mg/dL Desirable: ... > 60 mg/dL *The National Cholesterol Education Program(NCEP) 14 Reference Guidelines*: Normal: ............. < 150 mg/dL Borderline High: .... 150-199 mg/dL High: ............... 200-499 mg/dL Very High: .......... > 500 mg/dL * Source: National Cholesterol Education Program (NCEP) 15 Vitamin D deficiency has been defined by the [place] [employer] and an Endocrine Society practice guideline as a level of serum 25-OH vitamin D less than 20 ng/mL (1,2). The Endocrine Society went on to further define vitamin D insufficiency as a level between 21 and 29 ng/mL (2). 1. IOM ([place] [employer]). 2010. Dietary reference intakes for calcium and D. [place]: The National Academies Press. 2. Osbaldo MF, [place], Ishan EDUARDO, et al. Evaluation, treatment, and prevention of vitamin D deficiency: an Endocrine Society clinical practice guideline. JCEM. 2010; 96(9):1911-30. Performed at: RN - [facility] [address] [id number] Building Tech: Gemma Taylor MD, Phone: [phone] Performed at: RN - [facility] [address] [id number] Building Tech: Gemma Taylor MD, Phone: [phone] Note: Persistent reduction for 3 months or more in an eGFR <60 mL/min/1.73 m2 defines CKD. Patients with eGFR values >/=60 mL/min/1.73 m2 may also have CKD if evidence of persistent proteinuria is present. The original MDRD equation for estimated GFR is not valid for patients less than 18 years of age. Additional information may be found at www.kdoqi.org. Procedures Date Code Description Status 08/05/2018 72890 Eye Exam Est Patient Comprehensive Completed 06/24/2018 04309 Brief Emotional/Behav Assessment W/ Scoring Doc Per Completed Standard Inst 02/02/2018 54867 Eye Exam Est Patient Comprehensive Completed 11/19/2017 51822 Eye Exam Est Patient Comprehensive Completed 10/13/2017 38770 Retina Completed 08/05/2017 80897 Extracapsular Cataract Extraction W/Intraocular Lens Completed 07/28/2017 89481 Ophthalmic Biometry By Partial Coherence Completed Interferometry W/Intra 07/16/2017 08335 Eye Exam New Patient Comprehensive Completed 10/28/2016 [id number] Mammogram Completed 08/07/2015 [id number] Mammogram Completed 07/17/2014 [id number] Mammogram Completed 09/28/2013 [id number] Colonoscopy Completed 09/28/2013 [id number] Bone Mineral Density Test Completed 01/25/2007 [id number] Colonoscopy Completed 10/24/2001 56907 EKG Interpretation And Report Only Completed Encounters Type Date Location Provider Dx Diagnosis Office Visit 07/29/2018 Primary [facility] Wale Navarro, Z79.899 [facility] 10:00a Office M.D. (current) drug therapy G31.84 Mild cognitive impairment, so stated L30.9 Dermatitis, unspecified K21.9 Gastro-esophageal reflux disease without esophagitis Office Visit 07/02/2018 3:00p Primary Care Wale Navarro G31.84 Mild cognitive Office M.D. impairment, so stated R26.9 Unspecified abnormalities of gait and mobility I65.22 Occlusion and stenosis of left carotid artery F32.89 Other specified depressive episodes Office Visit 06/24/2018 1:00p Primary Care Wale Navarro G31.84 Mild cognitive Office M.D. 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 depressive episodes Z79.899 [facility] (current) drug therapy G31.84 Mild cognitive impairment, so stated Office Visit 04/19/2018 1:00p Primary Care Melanie K21.9 Gastro-esophageal Office Rema Echevarria reflux disease without esophagitis E55.9 Vitamin D deficiency, unspecified Z79.899 [facility] (current) drug therapy F32.89 Other specified depressive episodes R27.0 Ataxia, unspecified H53.2 Diplopia R51 Headache Office Visit 11/20/2017 2:20p Primary Care Wale Navarro E55.9 Vitamin D Office M.D. 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 (current) drug therapy Z13.220 Encounter for screening for lipoid disorders K21.9 Gastro-esophageal reflux disease without esophagitis Z13.21 Encounter for screening for nutritional disorder F32.89 Other specified depressive episodes Office Visit 11/05/2011 Surgical Evelin 574.20 Calculus 1:15p Office Jose R Mckee, Gallbladder W/O M.D. Cholecystitis W/O Obstruction Office Visit 10/01/2011 Surgical Evelin 574.20 Calculus 10:30a Office Mookieopher HMatti, Gallbladder W/O M.D. Cholecystitis W/O Obstruction Plan of Treatment Future Appointment(s):12/08/2018 3:00 pm - Russell Pritchard MD at [facility]02/04/2019 11:15 am - Bo Mata MD at [facility]/14/2018 - Wale Navarro M.D.Z79.899 Other termite technician (current) drug therapyNew Labs: Comprehensive Metabolic Panel, Scheduled: 11/11/18CBC W/Automated Diff, Scheduled: 11/11/18Magnesium, Scheduled: 11/11/18Ua RFX Micro & Culture II, Scheduled: 11/11/18Vitamin B12, Scheduled: 11/11/18F32.89 Other specified depressive zwavgfazI10.84 Mild cognitive impairment, so edonfvR70.9 Gastro- esophageal reflux disease without zhxaccahljtP91.9 Vitamin D deficiency, unspecifiedNew Labs:Vitamin D,25-Hydroxy, Scheduled: 11/11/18R07.89 Other chest pain
--- OUTSIDE RECORDS SUMMARY | 2018-09-25 14:08 | XMS REPORT | Continuity of Care Document ---
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 Active Onset: 11/20/2017 Contusion of lower leg Wale Navarro M.D. Active Onset: 11/19/2017 Tear film insufficiency Bo Mata MD Active Onset: 11/19/2017 Combined form of senile cataract Bo Mata MD Active Onset: 11/19/2017 Presence of intraocular lens Bo Mata MD Active Onset: 04/19/2018 Coordination problem Wale Navarro M.D. Active Onset: 04/19/2018 Diplopia Wale Navarro M.D. Active Onset: 04/19/2018 Headache Wale Navarro M.D. Active Onset: 05/14/2018 Mild cognitive disorder Wale Navarro M.D. Active Onset: 06/24/2018 Abnormal gait Wale Navarro M.D. Active Onset: 07/02/2018 Carotid artery occlusion Wale Navarro M.D. Active Onset: 06/24/2018 Immunization Wale Navarro M.D. Active Onset: 07/29/2018 Contact dermatitis Wale Navarro M.D. Active Onset: 09/10/2018 Chest pain Wale Navarro M.D. Active Family History Date Family Member(s) Problem(s) Comments : (age 84 Father due to AR age 84 Years) Father due to Lung [...] Active Suspension 508-475mg One dose Melanie, Strength /10ML nightly. Rema Echevarria Formula (OTC) Zoloft 09/29 Active Tablets 50mg 90tab take 1 Melanie, s tablet Rema Echevarria every morning Vitamin D High 04/23 Active Capsules 1000Unit 90cap 2 by Melanie Potency s mouth Rema Echevarria every day Pantoprazole 04/[address] 40mg 90tab take one Melanie Sodium s tablet by Rema Echevarria mouth once daily Fiber Laxative Active Capsules 625mg 1 po bid Aspirin Active Tablets DR 81mg 1 po qd Unknown Refresh Tears Active Solution 0.5% as needed Unknown Estrace Active Cream 0.1mg/GM apply Unknown peas size amount on finger and place at vaginal opening Aricept 05/17 Hx Tablets 5mg 30tab Take 1 Melanie s tablet Rema Echevarria - daily 06/24 Prednisolone 07/28 Hx Suspension 1% 5ml 1 drop H25.813 Adolfo Acetate left eye MD Bo - marleen 09/01 daily for four weeks; please begin after surgery Gentamicin 07/28 Hx Solution 0.3% 5ml 1 drop H25.813 Adolfo Sulfate left eye MD Bo - times 08/19 daily for 10 days; please begin 3 days prior to surgery Diclofenac 07/28 Hx Solution 0.1% 1unit 1 drop H25.813 Christiano Mata s left eye MD Bo - marleen 08/19 daily for 2 weeks beginning three days before operation Azithromycin 07/24 Hx Tablets 250mg 6tabs take 2 Melanie florentino Echevarria M.D. - by mouth 08/13 on day and take 1 tablet by mouth daily on days 2- Pantoprazole 04/08 Hx Solution 40mg 1 by Melanie Rec mouth Rema Echevarria - every day 04/08 Cyclobenzaprine 11/14 Hx Tablets 10mg 1 po tid Evelin emiliano Odell - spasms at H., MMattiD. 04/08 bedtime Hyoscyamine Hx Tablets 0.125mg 1/2 tab Unknown Sulfate / Sub daily - 04/08 Nexium Hx Capsules 40mg 60cap [address] hinds - 04/08 Niacin SR Hx Capsules 500mg 1 po Unknown ER daily - 04/08 Vitamin D-3 Hx Tablets 400Iu po qd Unknown /0000 - 04/08 Gaviscon Extra Hx Chewtabs 160-105mg 1 tbls at Unknown Strength Relief bedtime Formula - 07/16 Amitriptyline Hx Tablets 10mg 1 po qd Unknown HCL /0000 - 04/08 Ketorolac Hx Solution 1 drop 3 Unknown Tromethamine /0000 x a day - as needed 04/08 Flovent HFA Hx Aerosol 110mcg/Ac 2 puffs Unknown /0000 t twice a - day 04/08 Premarin Hx Cream 0.625mg/G insert Unknown /0000 M one-half - applicato 08/13 vaginally once to twice a week as needed Tylenol Extra Hx Tablets 500mg 1-2 tabs Unknown Strength /0000 by mouth - every 4 08/13 hours needed Marceline 3 Hx Capsules 1280mgS 1 by Unknown /0000 mouth - every day 05/14 Sodium Fluoride Hx Solution 1.1(0.5F) SF 5000 Unknown /0000 mg/ML ppm brush - 2x daily 08/13 Flagyl Hx Tablets 500mg one by Unknown /0000 mouth - twice a 05/14 day x days Nystatin-Triamci Hx Cream 278224-1. apply to Unknown nolone /0000 1Unit/GM- affected - % area 05/14 twice a day Immunizations CPT Code Status Date Vaccine Lot # [id number] Given 06/24/2018 Influenza Virus Vaccine, Quadrivalent, 36 Mos+, [id number] .[id number] 31999 Given 07/24/2017 Influenza Virus Vaccine [place] Iiv[place] [address] Given 07/10/2003 flu vaccination 20676 Given 10/17/2002 Tetnus Injection 26422 Given 07/12/2002 flu vaccination Vital Signs Date Vital Result Comment 09/10/2018 1:57pm BP Systolic Sitting Right Arm 120 mmHg BP Diastolic Sitting Right Arm 62 mmHg Body Temperature 98.4 F Heart Rate 70 /min reg Respiratory Rate 18 /min Height 62 inches 5'2" Weight 135.00 lb BMI (Body Mass Index) 24.7 kg/m2 BSA (Body Surface Area) 1.62 m2 [place] body weight in kilograms 50 kg O2 % BldC Oximetry 98 % ra 07/29/2018 10:25am BP Systolic Sitting Left Arm 140 mmHg BP Diastolic Sitting Left Arm 70 mmHg Body Temperature 98.1 F Heart Rate 70 /min Reg Respiratory Rate 18 /min Height 62 inches 5'2" Weight 134.00 lb BMI (Body Mass Index) 24.5 kg/m2 BSA (Body Surface Area) 1.61 m2 [place] body weight in kilograms 50 kg O2 % BldC Oximetry 97 % Ra 07/27/2018 12:08pm BP Systolic Sitting Right Arm 142 mmHg BP Diastolic Sitting Right Arm 66 mmHg Body Temperature 97.4 F Heart Rate 67 /min ra Respiratory Rate 18 /min Height 62 inches 5'2" Weight 133.00 lb BMI (Body Mass Index) 24.3 kg/m2 BSA (Body Surface Area) 1.61 m2 [place] body weight in kilograms 50 kg O2 [...] kg/m2 BSA (Body Surface Area) 1.64 m2 [place] body weight in kilograms 54 kg O2 % BldC Oximetry 95 % 04/19/2018 12:56pm BP Systolic 132 mmHg BP Diastolic 72 mmHg Body Temperature 98.5 F Heart Rate 73 /min Respiratory Rate 18 /min Height 64 inches 5'4" Weight 134.00 lb BMI (Body Mass Index) 23.0 kg/m2 BSA (Body Surface Area) 1.65 m2 [place] body weight in kilograms 54 kg O2 % BldC Oximetry 98 % 11/20/2017 2:27pm BP Systolic 124 mmHg BP Diastolic 68 mmHg Heart Rate 79 /min Respiratory Rate 14 /min Height 64 inches 5'4" Weight 133.12 lb BMI (Body Mass Index) 22.8 kg/m2 BSA (Body Surface Area) 1.65 m2 [place] body weight in kilograms 54 kg O2 % BldC Oximetry 95 % 08/19/2017 3:36pm BP Systolic 157 mmHg BP Diastolic 81 mmHg Heart Rate 80 /min Respiratory Rate 12 /min Height 64 inches 5'4" Weight 133.00 lb BMI (Body Mass Index) 22.8 kg/m2 BSA (Body Surface Area) 1.64 m2 [place] body weight in kilograms 54 kg O2 % BldC Oximetry 96 % 07/24/2017 3:31pm BP Systolic 169 mmHg BP Diastolic 65 mmHg Heart Rate 76 /min Respiratory Rate 14 /min Height 64 inches 5'4" Weight 134.25 lb BMI (Body Mass Index) 23.0 kg/m2 BSA (Body Surface Area) 1.65 m2 [place] body weight in kilograms 54 kg O2 % BldC Oximetry 97 % 04/23/2017 11:08am BP Systolic 154 mmHg BP Diastolic 72 mmHg Heart Rate 71 /min Respiratory Rate 12 /min Height 64 inches 5'4" Weight 139.00 lb BMI (Body Mass Index) 23.9 kg/m2 BSA (Body Surface Area) 1.68 m2 [place] body weight in kilograms 54 kg O2 % BldC Oximetry 100 % 04/08/2017 9:50am BP Systolic 128 mmHg BP Diastolic 69 mmHg Heart Rate 74 /min Respiratory Rate 16 /min Height 64 inches 5'4" Weight 138.00 lb BMI (Body Mass Index) 23.7 kg/m2 BSA (Body Surface Area) 1.67 m2 [place] body weight in kilograms 54 kg O2 [...] Potassium 3.9 3.5-5.1 SerPl-sCnc 018 SerPl-sCnc Neutrophils/leuk N2N/CCD Import Neutrophils/leuk 43.2 40.4-72.8 NFr Bld [...] ng/mL 30.0-100.0 1, 2 finding 018 [address] [facility] D,25-Hydroxy [place], [place] [id number] [phone] Serum or plasma N2N/CCD Import Serum or plasma 39.5 30.0-100.0 25-hydroxyvitamin D 018 25-hydroxyvitamin measurement (m D measurement (mass/volume) Serum or plasma N2N/CCD Import Serum or plasma 2.4 1.8-2.4 magnesium 018 magnesium measurement measurement (mass/volume (mass/volume) Vitamin B12 [facility] Vitamin B12 1381 pg/mL High 193-986 018 [address] [place], [place] [address] [phone] Reflex add FT3? Y Reflex add FT4? Y Magnesium 04/19/2018 [facility] Magnesium 2.4 mg/dL N 1.8-2.4 [address] [place], [place] [address] [phone] Reflex add FT3? Y Reflex add FT4? Y Comprehensive Metabolic 04/19/2018 [facility] Glucose 69 mg/dL Low 74-106 Panel [address] [place] [address] [phone] BUN 11 mg/dL N 7-18 Creatinine 0.8 [...] K/uL N 3.1-10.[address] Count [place], [place] [id number] [phone] Red Blood Count 4.32 M/uL N 3.90-5.40 [...] 40.4-72.8 Lymph % 36.2 % N 20.0-42.0 [place] % 13.6 % High 4.3-13.2 Eo% 2.3 % N 0.0-6.6 Bas% 0.6 % N 0.0-1.1 Neut# 2.23 K/uL N 1.8-7.0 Lymph # 1.71 K/uL N 1.0-4.0 [place] # 0.64 K/uL N 0.3-0.9 Eos # 0.11 K/uL N 0.0-0.5 Baso # 0.03 K/uL N 0.0-0.1 TSH Reflex FT4 04/19/2018 [facility] Thyroid Stim 1.47 uIU/mL N 0.30-4.20 And/Or FT3 [address] [place] [address] [phone] Reflex add FT3? Y Reflex add FT4? Y Serum or plasma 04/19/2018 N2N/CCD Import Serum or plasma 1381 High 193- 986 vitamin B12 vitamin B12 measurement measurement (mass/volu (mass/volume) Laboratory test 11/12/2017 [facility] Magnesium 2.4 mg/dL N 1.8-2.4 4 finding [address] [place], [place] [address] [phone] Vitamin B12 938 pg/mL N 193-986 Comprehensive Metabolic 11/12/2017 [facility] Glucose 87 mg/dL N 74-106 Panel [address] [place], [place] [address] [phone] BUN 18 mg/dL N 7-18 Creatinine 0.6 [...] U/L N 45-117 CBS W/Automated Diff 11/12/2017 [facility] White Blood 4.9 K/uL N 3.1-10.[address] Count [place], [place] [address] [phone] Red Blood Count 4.51 M/uL N 3.90-5.40 [...] 40.4-72.8 Lymph % 29.1 % N 20.0-42.0 [place] % 14.2 % High 4.3-13.2 Eo% 3.1 % N 0.0-6.6 Bas% 0.8 % N 0.0-1.1 Neut# 2.56 K/uL N 1.8-7.0 Lymph # 1.41 K/uL N 1.0-4.0 [place] # 0.69 K/uL N 0.3-0.9 Eos # 0.15 K/uL N 0.0-0.5 Baso # 0.04 K/uL N 0.0-0.1 Laboratory 11/12/2017 [facility] Vitamin 38.3 30.0-100.0 6 test finding [address] D,25-Hydroxy ng/mL [place], [place] [id number] [phone] Laboratory 08/12/2017 [facility] Hold Slide for Slide on 7, 8 test finding [address] [place] [address] <SEE [phone] NOTE> CBS 08/12/2017 [facility] White Blood 5.3 K/uL N 3.1-10.7 W/Automated [address] [place] [address] [phone] Red Blood Count 4.29 M/uL N 3.90-5.40 [...] 40.4-72.8 Lymph % 37.1 % N 20.0-42.0 [place] % 13.1 % N 4.3-13.2 Eo% 7.5 % High 0.0-6.6 Bas% 0.9 % N 0.0-1.1 Neut# 2.21 K/uL N 1.8-7.0 Lymph # 1.98 K/uL N 1.0-4.0 [place] # 0.70 K/uL N 0.3-0.9 Eos # 0.40 K/uL N 0.0-0.5 Baso # 0.05 K/uL N 0.0-0.1 Comprehensive Metabolic 07/17/2017 [facility] Glucose 90 mg/dL N 74-106 9 Panel [address] [place] [address] [phone] BUN 13 mg/dL N 7-18 Creatinine 0.7 [...] U/L N 45-117 CBS W/Automated Diff 07/17/2017 [facility] White Blood 5.0 K/uL N 3.1-10.[address] [place] [address] [phone] Red Blood Count 4.37 M/uL N 3.90-5.40 [...] 40.4-72.8 Lymph % 33.3 % N 20.0-42.0 [place] % 15.7 % High 4.3-13.2 Eo% 22.8 % High 0.0-6.6 Bas% 1.0 % N 0.0-1.1 Neut# 1.35 K/uL Low 1.8-7.0 Lymph # 1.65 K/uL N 1.0-4.0 [place] # 0.78 K/uL N 0.3-0.9 Eos # 1.13 K/uL High 0.0-0.5 Baso # 0.05 K/uL N 0.0-0.1 Laboratory 07/17/2017 [facility] Magnesium 2.3 mg/dL N 1.8-2.4 test finding [address] [place] [address] [phone] Laboratory 07/17/2017 [facility] Vitamin 35.0 30.0-100.0 11 test finding [address] D,25-Hydroxy ng/[place] [address] [phone] Laboratory 04/09/2017 [facility] HDL Cholesterol 40 mg/dL >40 12, test finding [address] [place], [place] [address] [phone] Triglycerides 121 mg/dL <150 14 Vitamin D,25-Hydroxy 24.1 ng/mL Low 30.0-100.0 15 TSH Reflex FT4 and/or FT3 2.18 uIU/mL N 0.30-4.20 Direct LDL 04/09/2017 [facility] LDL Chol. 93 mg/dL 0-99 16 Cholesterol [address] [facility] (Direct) [place] [address] [phone] Laboratory test 04/09/2017 [facility] Magnesium 2.2 mg/dL N 1.8-2.4 finding [address] [place] [address] [phone] Vitamin B12 857 pg/mL N 193-986 Comprehensive Metabolic 04/09/2017 [facility] Glucose 89 mg/dL N 74-106 Panel [address] [place], [place] [address] [phone] BUN 24 mg/dL High 7-18 Creatinine 0.8 [...] U/L N 45-117 CBS W/Automated Diff 04/09/2017 [facility] White Blood 4.0 K/uL N 3.1-10.[address] Count [place], [place] [address] [phone] Red Blood Count 4.23 M/uL N 3.90-5.40 [...] 40.4-72.8 Lymph % 42.2 % High 20.0-42.0 [place] % 13.6 % High 4.3-13.2 Eo% 6.9 % High 0.0-6.6 Bas% 0.7 % N 0.0-1.1 Neut# 1.47 K/uL Low 1.8-7.0 Lymph # 1.70 K/uL N 1.0-4.0 [place] # 0.55 K/uL N 0.3-0.9 Eos # 0.28 K/uL N 0.0-0.5 Baso # 0.03 K/uL N 0.0-0.1 1 F32.89,Z79.899,E55.9 2 Vitamin D deficiency has been defined by the [place] [employer] and an Endocrine Society practice guideline as a level of serum 25-OH vitamin D less than 20 ng/mL (1,2). The Endocrine Society went on to further define vitamin D insufficiency as a level between 21 and 29 ng/mL (2). 1. IOM ([place] [employer]). 2010. Dietary reference intakes for calcium and D. [place]: The National Academies Press. 2. Osbaldo [place], [place], Ishan EDUARDO, et al. Evaluation, treatment, and prevention of vitamin D deficiency: an Endocrine Society clinical practice guideline. JCEM. 2010; 96(7):1911-30. Performed at: RN - [facility] [address] [id number] Vocational Education Professional: Gemma Taylor MD, Phone: [phone] Note: Persistent reduction for 3 months [...] D deficiency has been defined by the [place] [employer] and an Endocrine Society practice guideline as a level of serum 25-OH vitamin D less than 20 ng/mL (1,2). The Endocrine Society went on to further define vitamin D insufficiency as a level between 21 and 29 ng/mL (2). 1. IOM ([place] [employer]). 2010. Dietary reference intakes for calcium and D. [place]: The National Academies Press. 2. Osbaldo MF, [place], Ishan EDUARDO, et al. Evaluation, treatment, and prevention of vitamin D deficiency: an Endocrine Society clinical practice guideline. JCEM. 2010; 96(7):1911-30. Performed at: RN - [facility] [address] [id number] Vocational Education Professional: Gemma Taylor MD, Phone: [phone] Z52.6 8 Slide on file in lab Instrument [...] D deficiency has been defined by the [place] [employer] and an Endocrine Society practice guideline as a level of serum 25-OH vitamin D less than 20 ng/mL (1,2). The Endocrine Society went on to further define vitamin D insufficiency as a level between 21 and 29 ng/mL (2). 1. IOM ([place] [employer]). 2010. Dietary reference intakes for calcium and D. [place]: The National Academies Press. 2. Osbaldo MF, [place], Ishan EDUARDO, et al. Evaluation, treatment, and prevention of vitamin D deficiency: an Endocrine Society clinical practice guideline. JCEM. 2010; 96(7):1911-30. Performed at: RN - [facility] [address] [id number] Vocational Education Professional: Gemma Taylor MD, Phone: [phone] Z79.899 Z13.220 Z13.21 Z79.899 Z13.220 Z13.21 [...] D deficiency has been defined by the [place] [employer] and an Endocrine Society practice guideline as a level of serum 25-OH vitamin D less than 20 ng/mL (1,2). The Endocrine Society went on to further define vitamin D insufficiency as a level between 21 and 29 ng/mL (2). 1. IOM ([place] [employer]). 2010. Dietary reference intakes for calcium and D. [place]: The National Academies Press. 2. Osbaldo MF, [place] JOHN, Ishan EDUARDO, et al. Evaluation, treatment, and prevention of vitamin D deficiency: an Endocrine Society clinical practice guideline. JCEM. 2010; 96):1911-30. Performed at: RN - [facility] [address] [id number] Vocational Education Professional: Gemma Taylor MD, Phone: [phone] Performed at: RN - [facility] [address] [id number] Vocational Education Professional: Gemma Taylor MD, Phone: [phone] Note: Persistent reduction for 3 months [...] [email or web address]. Procedures Date Code Description Status 08/05/2018 88278 Eye Exam Est Patient Comprehensive Completed 06/24/2018 05840 Brief Emotional/Behav Assessment W/ Scoring Doc Per Completed Standard Inst 02/02/2018 29778 Eye Exam Est Patient Comprehensive Completed 11/19/2017 19638 Eye Exam Est Patient Comprehensive Completed 10/13/2017 71340 Retina Completed 08/05/2017 80629 Extracapsular Cataract Extraction W/Intraocular Lens Completed 07/28/2017 27177 Ophthalmic Biometry By Partial Coherence Completed Interferometry W/Intra 07/16/2017 49480 Eye Exam New Patient Comprehensive Completed 10/28/2016 [id number] Mammogram Completed 08/07/2015 [id number] Mammogram Completed 07/17/2014 [id number] Mammogram Completed 09/28/2013 [id number] Colonoscopy Completed 09/28/2013 [id number] Bone Mineral Density Test Completed 01/25/2007 [id number] Colonoscopy Completed 10/24/2001 56938 EKG Interpretation And Report Only Completed Encounters Type Date Location Provider Dx Diagnosis Office Visit 07/29/2018 Primary Care Wale Navarro, L30.9 Dermatitis, 10:00a Office M.D. 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 (current) drug therapy Z13.220 Encounter for screening for lipoid disorders K21.9 Gastro-esophageal reflux disease without esophagitis Z13.21 Encounter for screening for nutritional disorder F32.89 Other specified depressive episodes Office Visit 11/05/2011 Surgical Evelin, 574.20 Calculus 1:15p Office Jose R Mckee, Gallbladder W/O M.D. Cholecystitis W/O Obstruction Office Visit 10/01/2011 Surgical Evelin, 574.20 Calculus 10:30a Office Mookieopher HMatti, Gallbladder W/O M.D. Cholecystitis W/O Obstruction Plan of Treatment Future Appointment(s):12/08/2018 3:00 pm - Russell Pritchard MD at [facility]02/04/2019 11:15 am - Bo Mata MD at [facility]/14/2018 - Wale Navarro M.D.Z79.899 Other mcfp (current) drug therapyNew Labs: Comprehensive Metabolic Panel, Scheduled: 11/11/18CBC W/Automated Diff, Scheduled: 11/11/18Magnesium, Scheduled: 11/11/18Ua RFX Micro & Culture II, Scheduled: 11/11/18Vitamin B12, Scheduled: 11/11/18F32.89 Other specified depressive xomyelzrD80.84 Mild cognitive impairment, so dhciybW31.9 Gastro- esophageal reflux disease without agwkqlwdrksE60.9 Vitamin D deficiency, unspecifiedNew Labs:Vitamin D,25-Hydroxy, Scheduled: 11/11/18R07.89 Other chest pain
--- NOTE | 2018-09-25 14:37 | UC ---
General HPI - HPI Summary HPI Summary: PT MISSED A STEP AND FELL INJURING HER r ELBOW, r KNEE AND L 4TH FINGER. OCCURED ABOUT 2 HOURS AGO. DENIED INJURY TO HEAD, NECK AND BACK. DAUGHTER AT BEDSIDE WASHED R KNEE ABRASION AND APPLIED ANTIBIOTIC STEAM SHOVEL OILER. - History of Current Complaint Stated Complaint: ELBOW/KNEE INURY S/P FALL Hx Obtained From: Patient, Family/Social Services Manager Hx Last Menstrual Period: n/a Onset/Duration: Sudden Onset Timing: Constant Associated Signs & Symptoms: Negative: Headache - Allergy/Home Medications Allergies/Adverse Reactions: Allergies Allergy/AdvReac Type Severity Reaction Status Date / Time codeine Allergy See Comment Verified 04/06/18 17:30 fentanyl Allergy Shakes Verified 04/06/18 17:30 hydrocodone Allergy See Comment Verified 04/06/18 17:30 midazolam [From Versed] Allergy Shakes Verified 04/06/18 17:30 Penicillins Allergy Unknown Verified 04/06/18 17:30 Reaction Details solifenacin Allergy Unknown Verified 09/25/18 14:47 Reaction Details tolterodine Allergy Unknown Verified 09/25/18 14:47 Reaction Details ciprofloxacin [From Cipro] AdvReac GI Upset Verified 09/25/18 14:47 ibuprofen AdvReac GI Upset Verified 09/25/18 14:47 nitrofurantoin AdvReac GI Upset Verified 09/25/18 14:47 venlafaxine [From Effexor] AdvReac GI Upset Verified 09/25/18 14:47 Home Medications: Home Medications Acetaminophen [Tylenol] 650 mg PO BID 09/25/18 [History Confirmed 09/25/18] Estradiol VAG CM (NF) [Estrace VAG CM (NF)] 1 applic VAGINAL SEE INSTRUCTIONS [History Confirmed 09/25/18] Rivastigmine PATCH 9.5 MG(NF) [Exelon PATCH(NF)] 1 patch TRANSDERM DAILY [History Confirmed 09/25/18] Sertraline* [Zoloft*] 50 mg PO DAILY 09/25/18 [History Confirmed 09/25/18] PMH/Surg Hx/FS Hx/Imm Hx - Additional Past Medical History Additional PMH: MILD MEMORY ISSUES GI/ History: Gastroesophageal Reflux Psychological History: Depression - Surgical History Surgical History: Yes Surgery Procedure, Year, and Place: benign cyst removed right breast- [facility], breast lump removed [id number]. BLADDER SX--2014 - Family History Known Family History: Positive: None, Cardiac Disease - Social History Occupation: Retired Alcohol Use: None Substance Use Type: None Smoking Status (MU): Never Smoked Tobacco Type: Cigarettes Have You Smoked in the Last Year: No - Immunization History Most Recent Tetanus Shot: UTD Vaccination Up to Date: Yes Review of Systems All Other Systems Reviewed And Are Negative: Yes Constitutional: Positive: Negative Skin: Positive: Other - ABRASION R KNEE Eyes: Positive: Negative ENT: Positive: Negative Respiratory: Positive: Negative Cardiovascular: Positive: Negative Gastrointestinal: Positive: Negative Genitourinary: Positive: Negative Motor: Positive: Negative Neurovascular: Positive: Negative Musculoskeletal: Positive: Other: - PAIN/BRUISING R ELBOW, L 4TH FINGER AND R KNEE THAT AN ABRASION WELL. Neurological: Positive: Negative Psychological: Positive: Negative Is Patient Immunocompromised?: No Physical Exam Triage Information Reviewed: Yes Appearance: Well-Appearing Vital Signs Reviewed: Yes Eyes: Positive: Conjunctiva Clear ENT: Positive: Normal ENT inspection Neck: Positive: Supple, Nontender, No Lymphadenopathy, Other: - C-SPINE IS NON TENDER. Respiratory: Positive: Chest non-tender, Lungs clear, Normal breath sounds Cardiovascular: Positive: RRR, No Murmur Abdomen Description: Positive: Nontender, No Organomegaly, Soft Bowel Sounds: Positive: Present Musculoskeletal: Positive: Other: - HEAD, C-SPINE AND THROACIC PLUS LUMBAR SPINE ARE WITHOUT DEFORMITY OR TENDERNES. L 4TH FINGER WITH MILD BRUSING AND TENDERNESS. R ELBOW WITH SWELLING AND BRUSING DORSAL SURFACE PLUS TENDER. R WITH SUPERFICIAL ABRASION, MILD BRUISING AND TENDERNESS. EXTREMITIES HAVE GROSS S/V/M INTACT X4. sTEADY GAIT TO EXAM ROOM. Neurological: Positive: Alert, Other: - cn=GROSSLY INTACT. Psychological: Positive: Normal Response To Family, Age Appropriate Behavior Skin Exam: Normal Procedures - Procedure Summary Procedure Summary: JADE TAPE LEFT 3/4TH FINGER BY THIS PA. GROSS S/V INTACT AFTER. NICKI AND SLING APPLIED BY NURSING-SEE NURSE NOTE. Diagnostics - Radiology No standard instances Radiology Interpretation Completed By: Radiologist - IMPRESSION: R KNEE= Negative for fracture. Osteoarthritis. R ELBOW: Negative for joint effusion or articular malalignment. Osseous irregularity at the lateral epicondyle with overlying soft tissue swelling may represent avulsion fracture at the common extensor tendon origin. Soft tissue swelling extends from the lateral aspect over the dorsal aspect of the proximal forearm. L 4TH FINGER=REPORT AND IMPRESSION: Nondisplaced volar base avulsion fracture at the middle phalanx reference the lateral view. Negative for additional fracture or articular malalignment. Fusiform soft tissue swelling most prominent at the proximal interphalangeal joint. Course/Dx - Course Course Of Treatment: PAIN MEDICATION DECLINED AT TIME OF EXAM. - Diagnoses Provider Diagnosis: Closed fracture of phalanx of left ring finger, Fracture of lateral epicondyle of right humerus, Contusion of knee, right, Abrasion of knee, right, Traumatic hematoma of right elbow Discharge - Sign-Out/Discharge Documenting (check all that apply): Patient Departure All imaging exams completed and their final reports reviewed: Yes - Discharge Plan Condition: Stable Disposition: HOME Patient Education Materials: Finger Fracture (ED), Elbow Fracture (ED), Abrasion (ED), Hematoma (ED) Referrals: Albert Thurman MD [Medical Doctor] - As Soon As Possible Additional Instructions: nicki right elbow and sling right arm during day but remove at bedtime. jade tape left 3rd and 4th fingers until cleared. - Billing Disposition and Condition Condition: STABLE Disposition: Home - Attestation Statements Provider Attestation: Per institutional requirements, I have reviewed the chart, however, I was not consulted specifically or made aware of this patient by the midlevel provider. I did not personally evaluate, interact with , or disposition this patient.
[2018-09-25 15:04] VITALS: BP 155/61
== END 2018-09-25 16:12 | disposition home or self-care (01) ==
LOC: UCCORT 12:09
DX: S42.431A Displaced fracture (avulsion) of lateral epicondyle of right humerus, initial encounter for closed fracture (principal); S80.211A Abrasion, right knee, initial encounter; S62.655A Nondisplaced fracture of middle phalanx of left ring finger, initial encounter for closed fracture; S50.01XA Contusion of right elbow, initial encounter; W10.9XXA Fall (on) (from) unspecified stairs and steps, initial encounter; Y92.9 Unspecified place or not applicable; Z88.5 Allergy status to narcotic agent; Z88.0 Allergy status to penicillin; Z88.4 Allergy status to anesthetic agent; Z88.6 Allergy status to analgesic agent; Z88.1 Allergy status to other antibiotic agents; Z88.8 Allergy status to other drugs, medicaments and biological substances; F32.9 Major depressive disorder, single episode, unspecified
CPT/HCPCS: 26720; 73140; 99213; G0463